=== PATIENT | male | born 1950 | race Caucasian/White ===

== ENCOUNTER 2017-11-20 20:44 | Observation (INO) | payer OTHER ==
[~2017-11-20] VITALS: Ht 182.9 cm; Wt 114.2 kg
[~2017-11-20 20:44] MED LIST: ASCO500 PO; ASPI325B; ASPI81EC PO; BISA5EC PO; CARI350 PO; CEFA250SU PO; CLOP75 PO; Cefadroxil500 MG PO; FISH1000 PO; HYDACE10B PO; HYDACE5 PO; HYDMOR2 PO; LOSA25 PO; LOSHYD PO; MECL25 PO; MULVITMINF PO; NAPR550 PO; Naproxen500 MG PO; Norco 7.5-3251 EACH PO; OMEP20ER PO; OXYACE7.5T PO; OXYC10TA19 PO; PROM25 PO; RAMI2.5; RAMI2.5 PO; SENN187 PO; SOMA350 MG PO; SUCR1 PO; SULTRIDS PO
[2017-11-20 21:27] LABS: BASOPHILS ABSOLUTE AUTO 0.05 K/mm3 (0.00-0.23); BASOPHILS PERCENT AUTO 1 % (0-2); EOSINOPHILS ABSOLUTE AUTO 0.18 K/mm3 (0.00-0.68); EOSINOPHILS PERCENT AUTO 2 % (0-6); Hematocrit 45.7 % (37.0-53.0); Hemoglobin 15.7 g/dL (13.5-17.5); IMMATURE GRAN ABSOLUTE AUTO 0.02 K/mm3 (0.00-0.10); IMMATURE GRAN PERCENT AUTO 0 % (0-1); LYMPHOCYTES ABSOLUTE AUTO 2.47 K/mm3 (0.84-5.20); LYMPHOCYTES PERCENT AUTO 32 % (21-46); MONOCYTES ABSOLUTE AUTO 0.75 K/mm3 (0.16-1.47); MONOCYTES PERCENT AUTO 10 % (4-13); Mean Corpuscular HGB 30.6 pg (26.0-34.0); Mean Corpuscular HGB Conc 34.4 g/dL (31.5-36.5); Mean Corpuscular Volume 89 fL (80-100); Mean Platelet Volume 9.2 fL (9.1-12.4); NEUTROPHILS ABSOLUTE AUTO 4.24 K/mm3 (1.96-9.15); NEUTROPHILS PERCENT AUTO 55 % (41-73); Platelet Count 309 K/mm3 (150-400); RDW Coefficient Variation 12.5 % (11.7-14.2); RDW Standard Deviation 41.1 fL (35.1-46.3); Red Blood Cell Count 5.13 M/mm3 (4.30-5.90); White Blood Cell Count 7.71 K/mm3 (4.00-11.30)
[2017-11-20 21:51] LABS: Alanine Aminotransfer (ALT/SGP 28 U/L (12-78); Albumin, Blood 3.8 g/dL (3.4-5.0); Albumin/Globulin Ratio 1.1 (0.8-1.8); Alk Phos 49 U/L (50-136); Anion Gap 8 mmol/L (6-16); Aspartate Aminotrans (AST/SGOT 15 U/L (12-37); Bilirubin, Total 0.5 mg/dL (0.1-1.0); Blood Urea Nitrogen 19 mg/dL (8-24); Bun/Creatinine Ratio 17.6 (12.0-20.0); CO2, Blood 25 mmol/L (21-32); Calcium, Blood 8.8 mg/dL (8.5-10.1); Chloride, Blood 107 mmol/L (98-108); Creatinine, Blood 1.08 mg/dL (0.60-1.20); Globulin, Blood 3.6 g/dL (2.2-4.0); Glomerular Filtration Rate >60 (60-); Glucose, Blood 107 mg/dL (70-99); Potassium, Blood 3.9 mmol/L (3.5-5.5); Sodium, Blood 140 mmol/L (136-145); Total Protein, Blood 7.4 g/dL (6.4-8.2); Troponin I <0.015 ng/mL (0.000-0.040)
[2017-11-20] MEDS ORDERED: ASPI81CH PO (23:58)
[2017-11-21 07:38] LABS: CHOL/HDL RATIO 4.7; Cholesterol 174 mg/dL (50-200); HDL Cholesterol 37 mg/dL (>39); LDL/HDL RATIO 2.9; Low Density Lipoprotein Chol 108 mg/dL (0-110); Triglycerides 147 mg/dL (30-160); Very Low Density Lipoprot Chol 29 mg/dL (6-32)
== END 2017-11-22 13:30 | disposition home or self-care (01) ==
LOC: ER 20:44 → MEDS 20:45 → EDBEDREQSVC 23:42 → MEDS 23:50
PROVIDERS: Emergency Medicine; Family Medicine
DX: R07.89 Other chest pain (principal); I10 Essential (primary) hypertension; R73.9 Hyperglycemia, unspecified; Z88.0 Allergy status to penicillin; Z79.899 Other long term (current) drug therapy; Z79.82 Long term (current) use of aspirin; Z88.8 Allergy status to other drugs, medicaments and biological substances
CPT/HCPCS: 36415; 71046; 78452; 80053; 80061; 83880; 84484; 85025; 93005; 93010; 93017; 96376; 99285-25; A9500; G0378; J0706; J2785; J3010

== ENCOUNTER 2018-11-18 03:45 | Emergency (ER) | payer OTHER ==
[~2018-11-18] VITALS: Ht 182.9 cm; Wt 114.3 kg
[~2018-11-18 03:45] MED LIST changes: +ASPI81CH PO
[2018-11-18] MEDS ORDERED: BENZ100A PO (05:11)
== END 2018-11-18 05:22 | disposition home or self-care (01) ==
LOC: ER 03:45
DX: R05 Cough (principal); R91.1 Solitary pulmonary nodule; I10 Essential (primary) hypertension; Z85.46 Personal history of malignant neoplasm of prostate; Z88.0 Allergy status to penicillin; Z88.8 Allergy status to other drugs, medicaments and biological substances; Z79.899 Other long term (current) drug therapy; Z79.82 Long term (current) use of aspirin
CPT/HCPCS: 71250; 99283-25

== ENCOUNTER 2019-02-21 06:43 | Day surgery (SDC) | payer OTHER ==
[~2019-02-21] VITALS: Ht 182.9 cm; Wt 116.6 kg
[~2019-02-21 06:43] MED LIST changes: +ALBU90OI; +BENZ100A PO
== END 2019-02-21 08:49 | disposition home or self-care (01) ==
LOC: ORSCSDS 06:43
PROVIDERS: Surgery
PROC: 0DBH8ZX Excision of Cecum, Via Natural or Artificial Opening Endoscopic, Diagnostic (ICD-10-PCS; principal; 2019-02-21 08:00)
PROC: 0DBK8ZX Excision of Ascending Colon, Via Natural or Artificial Opening Endoscopic, Diagnostic (ICD-10-PCS; principal; 2019-02-21 08:00)
DX: Z12.11 Encounter for screening for malignant neoplasm of colon (principal); D12.0 Benign neoplasm of cecum; D12.2 Benign neoplasm of ascending colon; I10 Essential (primary) hypertension; Z79.82 Long term (current) use of aspirin; Z85.46 Personal history of malignant neoplasm of prostate; Z86.718 Personal history of other venous thrombosis and embolism; Z79.899 Other long term (current) drug therapy
CPT/HCPCS: 88305; J0461; J2405; J2704; J7120

== ENCOUNTER → 2020-01-18 | Outpatient (CLI) | payer OTHER ==
[~2020-01-18] MED LIST changes: -ASPI81CH PO; +Aspirin EC81 MG PO; +CEFD300; +Cipro500 MG PO; +Pyridium200 MG PO
[2020-01-20 20:37] LABS: CORONAVIRUS (COVID19) CSH-NRL Negative (Negative)
== END ==
LOC: LAB 16:13 → LAB SHORT 16:13
PROVIDERS: Family Medicine
DX: R05 Cough (principal); Z20.828 Contact with and (suspected) exposure to other viral communicable diseases
CPT/HCPCS: U0003

== ENCOUNTER 2020-06-02 10:16 | Emergency (ER) | payer OTHER ==
[~2020-06-02] VITALS: Ht 182.9 cm; Wt 115.2 kg
[2020-06-02 11:01] LABS: BASOPHILS ABSOLUTE AUTO 0.03 K/mm3 (0.00-0.23); BASOPHILS PERCENT AUTO 1 % (0-2); EOSINOPHILS ABSOLUTE AUTO 0.14 K/mm3 (0.00-0.68); EOSINOPHILS PERCENT AUTO 3 % (0-6); Hematocrit 46.2 % (37.0-53.0); Hemoglobin 15.9 g/dL (13.5-17.5); IMMATURE GRAN ABSOLUTE AUTO 0.01 K/mm3 (0.00-0.10); IMMATURE GRAN PERCENT AUTO 0 % (0-1); LYMPHOCYTES ABSOLUTE AUTO 1.77 K/mm3 (0.84-5.20); LYMPHOCYTES PERCENT AUTO 33 % (21-46); MONOCYTES ABSOLUTE AUTO 0.46 K/mm3 (0.16-1.47); MONOCYTES PERCENT AUTO 9 % (4-13); Mean Corpuscular HGB 30.6 pg (26.0-34.0); Mean Corpuscular HGB Conc 34.4 g/dL (31.5-36.5); Mean Corpuscular Volume 89 fL (80-100); Mean Platelet Volume 9.4 fL (9.1-12.4); NEUTROPHILS ABSOLUTE AUTO 3.03 K/mm3 (1.96-9.15); NEUTROPHILS PERCENT AUTO 56 % (41-73); Platelet Count 276 K/mm3 (150-400); RDW Coefficient Variation 12.5 % (11.7-14.2); RDW Standard Deviation 40.7 fL (35.1-46.3); White Blood Cell Count 5.44 K/mm3 (4.00-11.30)
[2020-06-02 11:28] LABS: Alanine Aminotransfer (ALT/SGP 29 U/L (12-78); Albumin, Blood 3.7 g/dL (3.4-5.0); Albumin/Globulin Ratio 1.1 (0.8-1.8); Alk Phos 54 U/L (50-136); Anion Gap 7 mmol/L (6-16); Aspartate Aminotrans (AST/SGOT 16 U/L (12-37); Bilirubin, Total 0.7 mg/dL (0.1-1.0); Blood Urea Nitrogen 22 mg/dL (8-24); Bun/Creatinine Ratio 27.2 (12.0-20.0); CO2, Blood 23 mmol/L (21-32); Calcium, Blood 8.9 mg/dL (8.5-10.1); Chloride, Blood 111 mmol/L (98-108); Creatinine, Blood 0.81 mg/dL (0.60-1.20); Globulin, Blood 3.5 g/dL (2.2-4.0); Glomerular Filtration Rate >60 (60-); Glucose, Blood 102 mg/dL (70-99); Potassium, Blood 3.8 mmol/L (3.5-5.5); Sodium, Blood 141 mmol/L (136-145); Total Protein, Blood 7.2 g/dL (6.4-8.2); Troponin I <0.015 ng/mL (0.000-0.040)
== END 2020-06-02 13:18 | disposition home or self-care (01) ==
LOC: ER 10:16
PROVIDERS: Emergency Medicine
DX: R07.9 Chest pain, unspecified (principal); I10 Essential (primary) hypertension; Z79.82 Long term (current) use of aspirin; Z79.899 Other long term (current) drug therapy
CPT/HCPCS: 36415; 71046; 80053; 84484; 85025; 93005; 93010; 99285-25; A9270

== ENCOUNTER 2021-01-31 03:52 | Emergency (ER) | payer OTHER ==
[~2021-01-31] VITALS: Ht 182.9 cm; Wt 117.9 kg
== END 2021-01-31 07:15 | disposition home or self-care (01) ==
LOC: ER 03:52
DX: R51.9 Headache, unspecified (principal); I10 Essential (primary) hypertension
CPT/HCPCS: 70450; 99284-25

== ENCOUNTER 2022-04-28 09:13 | Day surgery (SDC) | payer OTHER ==
[~2022-04-28] VITALS: Ht 182.9 cm; Wt 124.9 kg
[2022-04-28] MEDS ORDERED: HYDCHL25 (09:36)
== END 2022-04-28 10:50 | disposition home or self-care (01) ==
LOC: ORSCSDS 09:13
PROVIDERS: Surgery
PROC: 0DBH8ZX Excision of Cecum, Via Natural or Artificial Opening Endoscopic, Diagnostic (ICD-10-PCS; principal; 2022-04-28 10:30)
DX: Z12.11 Encounter for screening for malignant neoplasm of colon (principal); Z86.010 Personal history of colon polyps; D12.0 Benign neoplasm of cecum; I10 Essential (primary) hypertension; Z85.46 Personal history of malignant neoplasm of prostate; Z79.899 Other long term (current) drug therapy
CPT/HCPCS: 88305; J2704; J7120

== ENCOUNTER 2024-04-10 09:28 | Emergency (ER) | payer OTHER ==
[~2024-04-10] VITALS: Ht 182.9 cm; Wt 117.9 kg
[~2024-04-10 09:28] MED LIST changes: +HYDCHL25
[2024-04-10 09:45] VITALS: BP 169/93
[2024-04-10 10:06] LABS: BASOPHILS ABSOLUTE AUTO 0.01 K/mm3 (0.00-0.23); BASOPHILS PERCENT AUTO 0 % (0-2); EOSINOPHILS ABSOLUTE AUTO 0.11 K/mm3 (0.00-0.68); EOSINOPHILS PERCENT AUTO 2 % (0-6); Hemoglobin 15.5 g/dL (13.5-17.5); IMMATURE GRAN ABSOLUTE AUTO 0.01 K/mm3 (0.00-0.10); IMMATURE GRAN PERCENT AUTO 0 % (0-1); LYMPHOCYTES ABSOLUTE AUTO 1.88 K/mm3 (0.84-5.20); LYMPHOCYTES PERCENT AUTO 29 % (21-46); MONOCYTES ABSOLUTE AUTO 0.56 K/mm3 (0.16-1.47); MONOCYTES PERCENT AUTO 9 % (4-13); Mean Corpuscular HGB 31.1 pg (26.0-34.0); Mean Corpuscular HGB Conc 35.2 g/dL (31.5-36.5); Mean Corpuscular Volume 88 fL (80-100); NEUTROPHILS ABSOLUTE AUTO 3.84 K/mm3 (1.96-9.15); NEUTROPHILS PERCENT AUTO 60 % (41-73); Platelet Count 293 K/mm3 (150-400); RDW Coefficient Variation 12.6 % (11.7-14.2); RDW Standard Deviation 41.1 fL (35.1-46.3); Red Blood Cell Count 4.98 M/mm3 (4.30-5.90); White Blood Cell Count 6.41 K/mm3 (4.00-11.30)
[2024-04-10 10:27] LABS: Albumin, Blood 3.6 g/dL (3.4-5.0); Bilirubin, Total 0.6 mg/dL (0.1-1.0); Bun/Creatinine Ratio 18.1 (12.0-20.0); Calcium, Blood 9.2 mg/dL (8.5-10.1); Creatinine, Blood 0.94 mg/dL (0.60-1.20); Globulin, Blood 3.6 g/dL (2.2-4.0); Potassium, Blood 4.1 mmol/L (3.5-5.5); Total Protein, Blood 7.2 g/dL (6.4-8.2)
[2024-04-10] MEDS ORDERED: PRED20 PO (11:23)
[2024-04-10] MEDS ORDERED: ALBU90OI INH (11:23)
[2024-04-10] MEDS ORDERED: BENZ100A PO (11:23)
[2024-04-10 12:15] LABS: Influenza A, PCR NEGATIVE (NEGATIVE); Influenza B, PCR NEGATIVE (NEGATIVE); Resp Syncytial Virus, PCR NEGATIVE (NEGATIVE); SARS-Cov-2 (COVID-19) PCR, MMC NEGATIVE (NEGATIVE)
== END 2024-04-10 11:49 | disposition home or self-care (01) ==
LOC: ER 09:28
PROVIDERS: Emergency Medicine; Student in an Organized Health Care Education/Training Program
DX: J20.9 Acute bronchitis, unspecified (principal); I10 Essential (primary) hypertension; Z88.0 Allergy status to penicillin; Z88.1 Allergy status to other antibiotic agents; Z88.2 Allergy status to sulfonamides; Z88.8 Allergy status to other drugs, medicaments and biological substances; Z79.899 Other long term (current) drug therapy
CPT/HCPCS: 0241U; 71046; 80053; 85025; 93005; 93010; 99284-25

== ENCOUNTER 2024-06-06 10:16 | Inpatient (IN) | payer OTHER ==
[~2024-06-06] VITALS: Ht 182.9 cm; Wt 118.5 kg
[2024-06-06] VITALS (10 sets, daily range): BP systolic 94–135; BP diastolic 67–84
[~2024-06-06 10:16] MED LIST changes: +ALBU90OI INH; -HYDCHL25; +HYDCHL25 PO; +PRED20 PO
[2024-06-06 11:02] LABS: Base Excess Venous 0.2 mmol/L; Bicarbonate Venous 24.5 mmol/L (24.0-30.0); PCO2 Venous 37.9 mmHg (38-42); pH Blood Venous 7.42 (7.34-7.37)
[2024-06-06 11:17] LABS: BASOPHILS ABSOLUTE AUTO 0.02 K/mm3 (0.00-0.23); BASOPHILS PERCENT AUTO 0 % (0-2); EOSINOPHILS ABSOLUTE AUTO 0.11 K/mm3 (0.00-0.68); EOSINOPHILS PERCENT AUTO 1 % (0-6); Hemoglobin 15.4 g/dL (13.5-17.5); IMMATURE GRAN ABSOLUTE AUTO 0.03 K/mm3 (0.00-0.10); IMMATURE GRAN PERCENT AUTO 0 % (0-1); LYMPHOCYTES ABSOLUTE AUTO 1.43 K/mm3 (0.84-5.20); LYMPHOCYTES PERCENT AUTO 17 % (21-46); MONOCYTES ABSOLUTE AUTO 0.72 K/mm3 (0.16-1.47); MONOCYTES PERCENT AUTO 9 % (4-13); Mean Corpuscular HGB 30.7 pg (26.0-34.0); Mean Corpuscular HGB Conc 34.2 g/dL (31.5-36.5); Mean Corpuscular Volume 90 fL (80-100); Mean Platelet Volume 9.6 fL (9.1-12.4); NEUTROPHILS ABSOLUTE AUTO 6.18 K/mm3 (1.96-9.15); NEUTROPHILS PERCENT AUTO 73 % (41-73); Platelet Count 269 K/mm3 (150-400); RDW Coefficient Variation 12.8 % (11.7-14.2); RDW Standard Deviation 42.2 fL (35.1-46.3); Red Blood Cell Count 5.02 M/mm3 (4.30-5.90); White Blood Cell Count 8.49 K/mm3 (4.00-11.30)
[2024-06-06 11:46] LABS: Bun/Creatinine Ratio 20.6 (12.0-20.0); Calcium, Blood 8.8 mg/dL (8.5-10.1); Creatinine, Blood 0.82 mg/dL (0.60-1.20); Potassium, Blood 3.8 mmol/L (3.5-5.5)
[2024-06-06 12:13] LABS: Influenza A, PCR NEGATIVE (NEGATIVE); Influenza B, PCR NEGATIVE (NEGATIVE); Resp Syncytial Virus, PCR NEGATIVE (NEGATIVE); SARS-Cov-2 (COVID-19) PCR, MMC NEGATIVE (NEGATIVE)
[2024-06-06 12:27] LABS: Anti-Xa UFH, PHA Monitoring <0.10 IU/mL; International Normalized Ratio 1.01; Prothrombin Time Results 10.8 Sec (9.7-11.5)
[2024-06-06] MEDS ORDERED: FLU VACC TS2024-25(6MOS UP)/PF 45 MCG/0.5 ML SYRINGE IM SCH (12:35)
[2024-06-06] MEDS ORDERED: Dose Adjust by Pharmacy XX STA (12:48)
[2024-06-06] MEDS ORDERED: Heparin Sodium,Porcine/0.5 NS 500 ML IV SCH (12:50)
[2024-06-06] MEDS ORDERED: Heparin Sodium 5000 Units/ML 1ML MDV IV ONE (12:50)
[2024-06-06] MEDS ORDERED: NS 250 ML IV ONE (13:15)
[2024-06-06] MEDS ORDERED: NS 1,000 ML IV ONE ×2 (13:16→14:04)
[2024-06-06] MEDS ORDERED: Heparin Sodium 1000 Units/ML 10ML MDV ONE ×2 (13:16→14:08)
[2024-06-06] MEDS ORDERED: Midazolam HCl 1MG / ML 2ML Vial ONE (14:03)
[2024-06-06] MEDS ORDERED: FentaNYL Citrate 50 MCG/ML 2 ML Injection ONE (14:04)
[2024-06-06] MEDS ORDERED: NS 500 ML IV ONE (15:15)
--- NOTE | 2024-06-06 17:59 | NUR ---
PT ARRIVED IN THE [facility] AT AP[facility]OX 1600 POST THROMBECTOMY PROCEDURE. PT IS ON ROOMAIR SATS KEPT ABOVE 90%, PT STILL HAS SOME SOB AND COUGH BUT REPORTED FEELING WAY BETTER THAN BEFORE. SBP 120-130'S, HRR SR/ST 90'S, AFEBRILE. AND SOME FAMILY MEMBERS AT THE BEDSIDE UPON ARRIVAL. PT REMAINED FLAT FOR ATLEAST 2 HRS PT COMPLIANT. RIGHT GROIN SITE, NO HEMATOMA NOTED AROUND THE SITE, CLOSURE DEVICE IN PLACE WITH CLEAR DRESSING INTACT. PT ON HEP GTT AT 18U/KG/HR. AWAITING FOR PT TO SIT UP STRAIGHT TO EAT DINNER. PT REPORTED NON WEIGHT BEARING ON LEFT ANKLE, PT REPORTS USE OF CRUTCHES, WALKER AND GAIT BELT AT HOME WITH 'S ASSISTANCE. DRESSING IN LEFT FOOT REMAINED INTACT, CIRC CHECK WNL. WILL REPORT TO ONCOMING SHIFT
[2024-06-07] VITALS (7 sets, daily range): BP systolic 120–143; BP diastolic 67–82
[2024-06-07 02:24] LABS: BASOPHILS ABSOLUTE AUTO 0.04 K/mm3 (0.00-0.23); BASOPHILS PERCENT AUTO 0 % (0-2); EOSINOPHILS ABSOLUTE AUTO 0.08 K/mm3 (0.00-0.68); EOSINOPHILS PERCENT AUTO 1 % (0-6); Hematocrit 41.4 % (37.0-53.0); Hemoglobin 14.3 g/dL (13.5-17.5); IMMATURE GRAN ABSOLUTE AUTO 0.03 K/mm3 (0.00-0.10); IMMATURE GRAN PERCENT AUTO 0 % (0-1); LYMPHOCYTES ABSOLUTE AUTO 2.51 K/mm3 (0.84-5.20); LYMPHOCYTES PERCENT AUTO 23 % (21-46); MONOCYTES ABSOLUTE AUTO 1.05 K/mm3 (0.16-1.47); MONOCYTES PERCENT AUTO 10 % (4-13); Mean Corpuscular HGB 30.8 pg (26.0-34.0); Mean Corpuscular HGB Conc 34.5 g/dL (31.5-36.5); Mean Corpuscular Volume 89 fL (80-100); Mean Platelet Volume 9.6 fL (9.1-12.4); NEUTROPHILS ABSOLUTE AUTO 7.12 K/mm3 (1.96-9.15); NEUTROPHILS PERCENT AUTO 66 % (41-73); Platelet Count 255 K/mm3 (150-400); RDW Coefficient Variation 13.1 % (11.7-14.2); RDW Standard Deviation 42.8 fL (35.1-46.3); Red Blood Cell Count 4.65 M/mm3 (4.30-5.90); White Blood Cell Count 10.83 K/mm3 (4.00-11.30)
[2024-06-07 02:41] LABS: Bun/Creatinine Ratio 20.3 (12.0-20.0); Calcium, Blood 8.4 mg/dL (8.5-10.1); Creatinine, Blood 0.89 mg/dL (0.60-1.20)
[2024-06-07] MEDS ORDERED: Dose Adjust by Pharmacy XX STA ×2 (03:15→09:06)
--- NOTE | 2024-06-07 06:30 | NUR ---
PT HAD INCREASED O2 DEMAND TO MAINTAIN SATS GREATER THAN/EQUAL TO 90%. PT ON 5L O2 BY NC AT THIS TIME. PT HAS NO C/O CP OR DYSPNEA. DISTAL CMS REMAINS INTACT. LEFT ANKLE REMAINS IN CAST DRESSING. PT TOLEARTING IV HEPARIN WELL, NO S/S BLEEDING/HEMATOMA. RT GROIN SITE REMAINS STABLE, DRESSING INTACT, NO NEW DRAINAGE NOTED.
--- NOTE | 2024-06-07 13:16 | NUR ---
Discussed closure device removal with Brandon Guallpa, new orders to remove. Removed closure device, no bleeding noted, slight bruising noted to site. Cleaned with chlorhexiden, gauze and tegaderm placed.
[2024-06-07] MEDS ORDERED: Benzonatate 100 MG Cap PO PRN (13:30)
[2024-06-07] MEDS ORDERED: HydroCHLOROthiazide 25 mg Tab PO SCH (17:00)
--- NOTE | 2024-06-07 18:17 | NUR ---
SHIFT SUMMARY PT A/OX4 AND COOPERATIVE OF CARE. PT ABLE TO EXPRESS NEEDS AND CALLS APPROPIATE. PT VSS THROGHOUT SHIFT WITH O2 SATS IN THE 90'S, O2 TITRATED FROM 5L NC TO 1L NC. NO REPORT OF SOB/DYSPNEA. NO REPORT OF CHEST PAIN/PRESSURE. RIGHT GROIN SITE WNL, FLOW STASIS REMOVED THIS SHIFT. PT ABLE TO TRANSFER TO [facility] [place] BY STAND AND PIVOT, NO WEIGHT BEARING OF RIGHT FOOT. PT INDEPENDENT IN BED. FAMILY AT BEDSIDE FOR A COUPLE OF HOURS, UPDATED ON PLAN OF CARE.
--- NOTE | 2024-06-07 18:50 | NUR ---
PT REPORTED PRESSURE AND PAIN OF HIS RIGHT CALF THAT HAS INCREASED THROUGHOUT SHIFT. PT RPEORTED THAT HE HAS HAD SUPERFICIAL CLOTS IN THE PAST. MD CONTACTED AND NOTIFIED OF PT'S INCREASED PRESSURE OF CALF. INSTRUCTED THIS RN TO ORDER VENOUS DUPLEX BILAT, ORDER PLACED.
[2024-06-08 03:31] LABS: BASOPHILS ABSOLUTE AUTO 0.05 K/mm3 (0.00-0.23); BASOPHILS PERCENT AUTO 1 % (0-2); EOSINOPHILS PERCENT AUTO 2 % (0-6); Hematocrit 39.2 % (37.0-53.0); Hemoglobin 13.4 g/dL (13.5-17.5); IMMATURE GRAN ABSOLUTE AUTO 0.04 K/mm3 (0.00-0.10); IMMATURE GRAN PERCENT AUTO 0 % (0-1); LYMPHOCYTES ABSOLUTE AUTO 2.76 K/mm3 (0.84-5.20); LYMPHOCYTES PERCENT AUTO 30 % (21-46); MONOCYTES ABSOLUTE AUTO 0.88 K/mm3 (0.16-1.47); MONOCYTES PERCENT AUTO 10 % (4-13); Mean Corpuscular HGB 30.6 pg (26.0-34.0); Mean Corpuscular HGB Conc 34.2 g/dL (31.5-36.5); Mean Corpuscular Volume 90 fL (80-100); Mean Platelet Volume 9.7 fL (9.1-12.4); NEUTROPHILS ABSOLUTE AUTO 5.34 K/mm3 (1.96-9.15); NEUTROPHILS PERCENT AUTO 58 % (41-73); Platelet Count 229 K/mm3 (150-400); RDW Coefficient Variation 12.7 % (11.7-14.2); RDW Standard Deviation 41.6 fL (35.1-46.3); Red Blood Cell Count 4.38 M/mm3 (4.30-5.90); White Blood Cell Count 9.27 K/mm3 (4.00-11.30)
[2024-06-08 03:53] LABS: Bun/Creatinine Ratio 24.3 (12.0-20.0); Calcium, Blood 8.4 mg/dL (8.5-10.1); Creatinine, Blood 0.91 mg/dL (0.60-1.20); Potassium, Blood 3.7 mmol/L (3.5-5.5)
[2024-06-08] MEDS ORDERED: Dose Adjust by Pharmacy XX STA (04:27)
[2024-06-08] MEDS ORDERED: Heparin Sodium 5000 Units/ML 1ML MDV IV ONE (04:30)
[2024-06-08 04:49] VITALS: BP 128/80
--- NOTE | 2024-06-08 06:09 | NUR ---
A&O X4. VITAL SIGNS STABLE. MAP.65. HR 83. SATURATIONS >90. HEPARIN DRIP INFUSING VIA PUMP AND 2 NURSES VERIFIED DRIP RATE PER EMR. RIGHT GROIN SITE WITH NO SIGNS OF BLEEDING AND DRESSING INTACT. MINIMAL COUGHING AFTER PRN COUGH MEDICATION ADMINISTERED. DENIES CHEST PAIN AND SOB. CALLS APPROPRIATELY. CALL LIGHT IS WITHIN REACH AND BED IS AT THE LOWEST POSITION.
[2024-06-08 08:05] VITALS: BP 162/82
[2024-06-08] MEDS ORDERED: Losartan Potassium 50 MG Tab PO SCH (09:00)
[2024-06-08] MEDS ORDERED: Rivaroxaban 10 MG Tab PO SCH (09:40)
--- NOTE | 2024-06-08 11:13 | NUR ---
PT TRANSITIONED TO PO ANTICOAG. PT EDUCATED ON FALL RISKS WHILE ON BLOOD THINNERS, PT VERBALIZED UNDERSTANDING. HEP GTT STOPPED AT THIS TIME.
[2024-06-08] MEDS ORDERED: BENZ100A PO (16:02)
[2024-06-08] MEDS ORDERED: XARELTO20 MG PO ×2 (16:04)
[2024-06-08 16:30] VITALS: BP 133/69
--- NOTE | 2024-06-08 17:20 | NUR ---
DISCHARGE UPDATE DISCHARGE PACKE GONE OVER WITH PT AND PT AT 1700. PT DISCHARGED AT 1720 VIA WHEELCHAIR AND ON RA. PT ABLE TO STAND AND PIVOT ON RIGHT LEG VIA WALKER, TOLERATED WELL. DISCHARGE PACKET AND PERSONAL BELONGINGS WITH PT AT TIME OF DISCHARGE. PT EDUCATED ON MEDICATION TITRATION, PT VERBALLY TAUGHT BACK.
== END 2024-06-08 17:00 | disposition home health service (06) | DRG 165 ==
LOC: ER 10:16 → PCU 10:17
PROVIDERS: Emergency Medicine; ADMIT Family Medicine
PROC: 02CQ3ZZ Extirpation of Matter from Right Pulmonary Artery, Percutaneous Approach (ICD-10-PCS; principal; 2024-06-06)
DX: I26.93 Single subsegmental thrombotic pulmonary embolism without acute cor pulmonale (principal); I10 Essential (primary) hypertension; Z88.0 Allergy status to penicillin; Z88.1 Allergy status to other antibiotic agents; Z88.8 Allergy status to other drugs, medicaments and biological substances; Z88.2 Allergy status to sulfonamides; Z79.899 Other long term (current) drug therapy; Z99.81 Dependence on supplemental oxygen; Z85.46 Personal history of malignant neoplasm of prostate; Z98.890 Other specified postprocedural states; Z90.49 Acquired absence of other specified parts of digestive tract; Z90.79 Acquired absence of other genital organ(s)
CPT/HCPCS: 0241U; 36415; 71045; 71260; 76937; 80048; 82803; 83880; 84484; 85025; 85520; 85610; 85730; 93005; 93010; 93308; 93321; 93970; 94762; 96374-59; 97161; 97530; 99152; 99285-25; A9270; C1757; C1769; C1894; G0378; J1644; J2250; J3010; J7030; J7040; J7050; Q9967

== ENCOUNTER 2024-06-10 10:46 | Observation (INO) | payer OTHER ==
[~2024-06-10] VITALS: Ht 188 cm; Wt 114.7 kg
[~2024-06-10 10:46] MED LIST changes: +XARELTO20 MG PO
[2024-06-10] MEDS ORDERED: LORazepam 2 MG/ML 1ML Injection IV ONE (10:55)
[2024-06-10 11:04] LABS: BASOPHILS ABSOLUTE AUTO 0.04 K/mm3 (0.00-0.23); BASOPHILS PERCENT AUTO 0 % (0-2); EOSINOPHILS PERCENT AUTO 1 % (0-6); Hematocrit 41.9 % (37.0-53.0); Hemoglobin 14.7 g/dL (13.5-17.5); IMMATURE GRAN ABSOLUTE AUTO 0.04 K/mm3 (0.00-0.10); IMMATURE GRAN PERCENT AUTO 0 % (0-1); LYMPHOCYTES ABSOLUTE AUTO 2.18 K/mm3 (0.84-5.20); LYMPHOCYTES PERCENT AUTO 24 % (21-46); MONOCYTES ABSOLUTE AUTO 0.72 K/mm3 (0.16-1.47); MONOCYTES PERCENT AUTO 8 % (4-13); Mean Corpuscular HGB 30.8 pg (26.0-34.0); Mean Corpuscular HGB Conc 35.1 g/dL (31.5-36.5); Mean Corpuscular Volume 88 fL (80-100); Mean Platelet Volume 9.3 fL (9.1-12.4); NEUTROPHILS ABSOLUTE AUTO 6.18 K/mm3 (1.96-9.15); NEUTROPHILS PERCENT AUTO 67 % (41-73); Platelet Count 357 K/mm3 (150-400); RDW Coefficient Variation 12.6 % (11.7-14.2); RDW Standard Deviation 40.9 fL (35.1-46.3); Red Blood Cell Count 4.78 M/mm3 (4.30-5.90); White Blood Cell Count 9.26 K/mm3 (4.00-11.30)
[2024-06-10 11:21] LABS: International Normalized Ratio 1.48; Prothrombin Time Results 15.4 Sec (9.7-11.5)
[2024-06-10 11:30] LABS: Albumin, Blood 3.6 g/dL (3.4-5.0); Bilirubin, Total 0.7 mg/dL (0.1-1.0); Bun/Creatinine Ratio 19.6 (12.0-20.0); Calcium, Blood 8.8 mg/dL (8.5-10.1); Creatinine, Blood 0.97 mg/dL (0.60-1.20); Globulin, Blood 3.6 g/dL (2.2-4.0); Potassium, Blood 3.6 mmol/L (3.5-5.5); Total Protein, Blood 7.2 g/dL (6.4-8.2)
[2024-06-10] MEDS ORDERED: XARELTO15 MG PO (11:30)
[2024-06-10] MEDS ORDERED: Midodrine 5 MG Tab PO PRN (14:55)
[2024-06-10] MEDS ORDERED: Ondansetron HCl 2 MG / ML 2ML Vial IV PRN (14:55)
[2024-06-10] MEDS ORDERED: NS 1,000 ML IV SCH (14:55)
[2024-06-10] MEDS ORDERED: Benzonatate 100 MG Cap PO PRN (14:55)
[2024-06-10 16:10] LABS: CHOL/HDL RATIO 5.7; Cholesterol 178 mg/dL (50-200); HDL Cholesterol 31 mg/dL (>39); LDL/HDL RATIO 3.6; Low Density Lipoprotein Chol 112 mg/dL (0-110); Triglycerides 176 mg/dL (30-160); Very Low Density Lipoprot Chol 35 mg/dL (6-32)
[2024-06-10 16:28] VITALS: BP 120/77
[2024-06-10 16:31] LABS: Source, Urine Clean Catch
[2024-06-10 16:39] LABS: Appearance, Urine Clear (Clear); Bilirubin, Urine Neg (Neg); Blood, Urine Neg (Neg); Glucose Qualitative, Urine Neg (Neg); Ketones, Urine Neg (Neg); Leukocyte Esterase, Urine Neg (Neg); Nitrite, Urine Neg (Neg); Protein, Urine Neg (Neg); Urobilinogen, Urine NORM (Normal)
[2024-06-10 16:40] LABS: Color, Urine Pale Yellow (P-Yellow)
--- NOTE | 2024-06-10 18:04 | NUR ---
shift summary patient arrived from [facility] via [facility] and transfered to pcu bed via slider sheet. vital signs stable. tele sinus rhythm 80s. spo2 >96% on 2l nc and this rn took oxygen off and spo2 remains >92% on room air. admit history, initital, and assessment complete. home med rec complete. patient is alert and oriented x4. nihs scale 0. patient has right side weaker raker buffing wheel when squeezing my hands. patient is deconditioned and weakness due to having ankle surgery in may and being non weight bearing on left leg. patient uses a scooter at home to get around. patient has appointment on wednesdayjune [address] [facility]. patient denies pain, chest pain/pressure or shortness of breath. patient has brusing at right groin site from previous addmission access. see admit shift assessment for further detials. plan of care is up to date
[2024-06-10 20:33] VITALS: BP 122/74
[2024-06-10] MEDS ORDERED: GuaiFENesin 600 MG TabCR PO SCH (21:00)
[2024-06-10] MEDS ORDERED: Rivaroxaban 10 MG Tab PO SCH (21:00)
[2024-06-11 00:23] VITALS: BP 123/72
[2024-06-11 04:24] LABS: BASOPHILS ABSOLUTE AUTO 0.04 K/mm3 (0.00-0.23); BASOPHILS PERCENT AUTO 1 % (0-2); EOSINOPHILS ABSOLUTE AUTO 0.16 K/mm3 (0.00-0.68); EOSINOPHILS PERCENT AUTO 2 % (0-6); Hematocrit 38.6 % (37.0-53.0); IMMATURE GRAN ABSOLUTE AUTO 0.03 K/mm3 (0.00-0.10); IMMATURE GRAN PERCENT AUTO 0 % (0-1); LYMPHOCYTES ABSOLUTE AUTO 1.98 K/mm3 (0.84-5.20); LYMPHOCYTES PERCENT AUTO 27 % (21-46); MONOCYTES ABSOLUTE AUTO 0.66 K/mm3 (0.16-1.47); MONOCYTES PERCENT AUTO 9 % (4-13); Mean Corpuscular HGB 30.4 pg (26.0-34.0); Mean Corpuscular HGB Conc 33.7 g/dL (31.5-36.5); Mean Corpuscular Volume 90 fL (80-100); Mean Platelet Volume 9.4 fL (9.1-12.4); NEUTROPHILS ABSOLUTE AUTO 4.43 K/mm3 (1.96-9.15); NEUTROPHILS PERCENT AUTO 61 % (41-73); Platelet Count 303 K/mm3 (150-400); RDW Coefficient Variation 12.7 % (11.7-14.2); RDW Standard Deviation 41.8 fL (35.1-46.3); Red Blood Cell Count 4.27 M/mm3 (4.30-5.90)
[2024-06-11 04:44] LABS: Bilirubin, Total 0.4 mg/dL (0.1-1.0); Calcium, Blood 8.2 mg/dL (8.5-10.1); Creatinine, Blood 0.95 mg/dL (0.60-1.20); Globulin, Blood 3.1 g/dL (2.2-4.0); Potassium, Blood 4.1 mmol/L (3.5-5.5); Total Protein, Blood 6.1 g/dL (6.4-8.2)
--- NOTE | 2024-06-11 06:21 | NUR ---
PT ALERT AND ORIENTED, VSS, ON ROOM AIR, RRR AND UNLABORED. IVF COMPLETED PER MD ORDER, DENIES CP, SOB, DOES NOT SCORE ON STROKE SCALE. WEAKNESS ON RIGHT SIDE RESOLVED UPON REASSESSMENT, VSS. PT RESTING COMFORTABLY THROUGHOUT SHIFT, AWARE OF NON-WEIGHT BEARING ON LLE (ANKLE). BRUISING FROM EMBOLECTOMY UNCHANGED FROM ASSESSMENT WITH SECOND RN DURING BEDSIDE REPORT, AGAIN PT DENIES PAIN. SITE IS SOFT AND NOT FIRM, WDL. NO CONCERNS AT THIS TIME. PT EAGER TO DITCHER EXPLAINED TO PT THAT IT IS NOT UP TO HER TO D/C PT, PT VERBALIZES UNDERSTANDING. PLEASANT AND ENJOYABLE TO TALK TO. NO CURRENT ISSUES AT THIS TIME.
[2024-06-11 06:35] VITALS: BP 146/79
[2024-06-11 07:28] VITALS: BP 138/86
[2024-06-11] MEDS ORDERED: Atorvastatin 40 MG Tab PO SCH (09:00)
[2024-06-11 11:08] VITALS: BP 136/76
[2024-06-11] MEDS ORDERED: ATOR40TA PO (13:30)
[2024-06-11] MEDS ORDERED: XARELTO20 MG PO (13:47)
--- NOTE | 2024-06-11 14:10 | NUR ---
DISCHARGE PT D/C PCU 08 VIA WHEELCHAIR. DISCHARGE INSTRUCTIONS AND EDUCATION PROVIDED. ALL BELONGINGS WITH PT.
== END 2024-06-11 14:05 | disposition home or self-care (01) ==
LOC: ER 10:46 → ERHOLD 10:47 → PCU 16:09
PROVIDERS: Emergency Medicine; ADMIT Internal Medicine
DX: I63.9 Cerebral infarction, unspecified (principal); I95.9 Hypotension, unspecified; I26.99 Other pulmonary embolism without acute cor pulmonale; Z88.0 Allergy status to penicillin; Z88.2 Allergy status to sulfonamides; Z88.8 Allergy status to other drugs, medicaments and biological substances; Z79.899 Other long term (current) drug therapy
CPT/HCPCS: 36415; 70450; 70496; 70498; 70551; 71045; 80053; 80061; 81003; 83036; 83880; 84145; 84484; 85025; 85610; 85730; 87040; 93005; 93010; 93306; 94760; 96361; 96374; 97116; 97161; 97530; 99285-25; A9270; G0378; J2060; J7030; Q9967

== ENCOUNTER 2024-06-20 08:16 | Emergency (ER) | payer OTHER ==
[~2024-06-20] VITALS: Ht 182.9 cm; Wt 113.4 kg
[~2024-06-20 08:16] MED LIST changes: +ATOR40TA PO; +XARELTO15 MG PO
[2024-06-20] MEDS ORDERED: HYDCHL25 PO (09:17)
[2024-06-20 09:29] LABS: Albumin, Blood 3.8 g/dL (3.4-5.0); Albumin/Globulin Ratio 1.1 (0.8-1.8); Bilirubin, Total 0.7 mg/dL (0.1-1.0); Bun/Creatinine Ratio 21.3 (12.0-20.0); Calcium, Blood 9.7 mg/dL (8.5-10.1); Creatinine, Blood 0.89 mg/dL (0.60-1.20); Globulin, Blood 3.5 g/dL (2.2-4.0); Potassium, Blood 5.4 mmol/L (3.5-5.5); Total Protein, Blood 7.3 g/dL (6.4-8.2)
[2024-06-20 09:50] LABS: BASOPHILS ABSOLUTE AUTO 0.02 K/mm3 (0.00-0.23); BASOPHILS PERCENT AUTO 0 % (0-2); EOSINOPHILS ABSOLUTE AUTO 0.07 K/mm3 (0.00-0.68); EOSINOPHILS PERCENT AUTO 1 % (0-6); Hematocrit 42.2 % (37.0-53.0); Hemoglobin 14.2 g/dL (13.5-17.5); IMMATURE GRAN ABSOLUTE AUTO 0.01 K/mm3 (0.00-0.10); IMMATURE GRAN PERCENT AUTO 0 % (0-1); LYMPHOCYTES ABSOLUTE AUTO 1.66 K/mm3 (0.84-5.20); LYMPHOCYTES PERCENT AUTO 29 % (21-46); MONOCYTES ABSOLUTE AUTO 0.48 K/mm3 (0.16-1.47); MONOCYTES PERCENT AUTO 8 % (4-13); Mean Corpuscular HGB 29.8 pg (26.0-34.0); Mean Corpuscular HGB Conc 33.6 g/dL (31.5-36.5); Mean Corpuscular Volume 89 fL (80-100); NEUTROPHILS ABSOLUTE AUTO 3.59 K/mm3 (1.96-9.15); NEUTROPHILS PERCENT AUTO 62 % (41-73); Platelet Count 424 K/mm3 (150-400); RDW Coefficient Variation 12.6 % (11.7-14.2); RDW Standard Deviation 41.3 fL (35.1-46.3); Red Blood Cell Count 4.76 M/mm3 (4.30-5.90); White Blood Cell Count 5.83 K/mm3 (4.00-11.30)
[2024-06-20] MEDS ORDERED: LORazepam 2 MG/ML 1ML Injection IV ONE (09:55)
[2024-06-20] MEDS ORDERED: Rivaroxaban 10 MG Tab PO ONE (11:15)
[2024-06-20 12:01] LABS: International Normalized Ratio 1.07; Prothrombin Time Results 11.4 Sec (9.7-11.5)
[2024-06-20 14:00] VITALS: BP 154/75
== END 2024-06-20 14:19 | disposition home or self-care (01) ==
LOC: ER 08:16
PROVIDERS: Physician Assistant
DX: R06.02 Shortness of breath (principal); R53.1 Weakness; I10 Essential (primary) hypertension; Z86.711 Personal history of pulmonary embolism; Z86.73 Personal history of transient ischemic attack (TIA), and cerebral infarction without residual deficits; Z85.46 Personal history of malignant neoplasm of prostate; Z90.79 Acquired absence of other genital organ(s); Z88.1 Allergy status to other antibiotic agents; Z88.0 Allergy status to penicillin; Z79.01 Long term (current) use of anticoagulants; Z79.899 Other long term (current) drug therapy; Z59.89 Other problems related to housing and economic circumstances
CPT/HCPCS: 70450; 71046; 80053; 83880; 84484; 85025; 85610; 85730; 93005; 93010; 99285-25; A9270; J2060

== ENCOUNTER → 2024-06-26 | Outpatient (CLI) | payer OTHER ==
[2024-06-26 15:00] LABS: BASOPHILS ABSOLUTE AUTO 0.01 K/mm3 (0.00-0.23); BASOPHILS PERCENT AUTO 0 % (0-2); EOSINOPHILS ABSOLUTE AUTO 0.09 K/mm3 (0.00-0.68); EOSINOPHILS PERCENT AUTO 1 % (0-6); Hematocrit 42.5 % (37.0-53.0); Hemoglobin 14.3 g/dL (13.5-17.5); IMMATURE GRAN ABSOLUTE AUTO 0.01 K/mm3 (0.00-0.10); IMMATURE GRAN PERCENT AUTO 0 % (0-1); LYMPHOCYTES ABSOLUTE AUTO 1.86 K/mm3 (0.84-5.20); LYMPHOCYTES PERCENT AUTO 29 % (21-46); MONOCYTES PERCENT AUTO 9 % (4-13); Mean Corpuscular HGB 30.8 pg (26.0-34.0); Mean Corpuscular HGB Conc 33.6 g/dL (31.5-36.5); Mean Corpuscular Volume 92 fL (80-100); NEUTROPHILS ABSOLUTE AUTO 3.89 K/mm3 (1.96-9.15); NEUTROPHILS PERCENT AUTO 60 % (41-73); Platelet Count 347 K/mm3 (150-400); RDW Coefficient Variation 13.2 % (11.7-14.2); RDW Standard Deviation 44.1 fL (35.1-46.3); Red Blood Cell Count 4.64 M/mm3 (4.30-5.90); White Blood Cell Count 6.46 K/mm3 (4.00-11.30)
[2024-06-26 15:08] LABS: Albumin, Blood 3.7 g/dL (3.4-5.0); Albumin/Globulin Ratio 1.1 (0.8-1.8); Bilirubin, Total 0.4 mg/dL (0.1-1.0); Bun/Creatinine Ratio 16.7 (12.0-20.0); Calcium, Blood 9.3 mg/dL (8.5-10.1); Creatinine, Blood 1.02 mg/dL (0.60-1.20); Globulin, Blood 3.3 g/dL (2.2-4.0); Potassium, Blood 4.3 mmol/L (3.5-5.5)
== END ==
LOC: LAB SHORT 14:55 → LAB 14:55
PROVIDERS: Physician Assistant
DX: R31.9 Hematuria, unspecified (principal)
CPT/HCPCS: 80053; 85025; 87086

== ENCOUNTER 2024-07-06 15:23 | Emergency (ER) | payer OTHER ==
[~2024-07-06] VITALS: Ht 182.9 cm; Wt 115.7 kg
[2024-07-06 16:00] LABS: BASOPHILS ABSOLUTE AUTO 0.02 K/mm3 (0.00-0.23); BASOPHILS PERCENT AUTO 1 % (0-2); EOSINOPHILS ABSOLUTE AUTO 0.06 K/mm3 (0.00-0.68); EOSINOPHILS PERCENT AUTO 2 % (0-6); Hematocrit 42.8 % (37.0-53.0); Hemoglobin 14.2 g/dL (13.5-17.5); IMMATURE GRAN ABSOLUTE AUTO 0.01 K/mm3 (0.00-0.10); IMMATURE GRAN PERCENT AUTO 0 % (0-1); LYMPHOCYTES ABSOLUTE AUTO 1.46 K/mm3 (0.84-5.20); LYMPHOCYTES PERCENT AUTO 42 % (21-46); MONOCYTES ABSOLUTE AUTO 0.68 K/mm3 (0.16-1.47); MONOCYTES PERCENT AUTO 20 % (4-13); Mean Corpuscular HGB 30.8 pg (26.0-34.0); Mean Corpuscular HGB Conc 33.2 g/dL (31.5-36.5); Mean Corpuscular Volume 93 fL (80-100); Mean Platelet Volume 9.6 fL (9.1-12.4); NEUTROPHILS ABSOLUTE AUTO 1.21 K/mm3 (1.96-9.15); NEUTROPHILS PERCENT AUTO 35 % (41-73); Platelet Count 230 K/mm3 (150-400); RDW Coefficient Variation 13.2 % (11.7-14.2); RDW Standard Deviation 44.8 fL (35.1-46.3); Red Blood Cell Count 4.61 M/mm3 (4.30-5.90); White Blood Cell Count 3.44 K/mm3 (4.00-11.30)
[2024-07-06 16:21] LABS: Albumin, Blood 3.5 g/dL (3.4-5.0); Albumin/Globulin Ratio 1.1 (0.8-1.8); Bilirubin, Total 0.3 mg/dL (0.1-1.0); Bun/Creatinine Ratio 15.6 (12.0-20.0); Calcium, Blood 8.9 mg/dL (8.5-10.1); Creatinine, Blood 0.96 mg/dL (0.60-1.20); Globulin, Blood 3.1 g/dL (2.2-4.0); Potassium, Blood 4.1 mmol/L (3.5-5.5); Total Protein, Blood 6.6 g/dL (6.4-8.2)
[2024-07-06] MEDS ORDERED: Oxymetazoline 0.05% Nasal Relief Spray 15mL BTL ONE (18:45)
[2024-07-06 18:56] VITALS: BP 169/63
== END 2024-07-06 19:03 | disposition home or self-care (01) ==
LOC: ER 15:23
PROVIDERS: Emergency Medicine
DX: J20.9 Acute bronchitis, unspecified (principal); I10 Essential (primary) hypertension
CPT/HCPCS: 71046; 80053; 83880; 84484; 85025; 93005; 93010; 99285-25; A9270

== ENCOUNTER 2024-11-30 01:36 | Emergency (ER) | payer OTHER ==
[~2024-11-30] VITALS: Ht 182.9 cm; Wt 120.2 kg
[2024-11-30 03:30] VITALS: BP 132/76
[2024-11-30] MEDS ORDERED: Robaxin750 MG PO (03:30)
== END 2024-11-30 03:46 | disposition home or self-care (01) ==
LOC: ER 01:36
DX: S86.912A Strain of unspecified muscle(s) and tendon(s) at lower leg level, left leg, initial encounter (principal); I10 Essential (primary) hypertension; Z88.0 Allergy status to penicillin; Z88.1 Allergy status to other antibiotic agents; Z79.899 Other long term (current) drug therapy; X58.XXXA Exposure to other specified factors, initial encounter
CPT/HCPCS: 93971; 99283-25; A9270